=== PATIENT | male | born 1965 | race Asian ===

== ENCOUNTER 2018-07-29 12:12 | Inpatient (IN) | payer MEDICAID ==
[~2018-07-29] VITALS: Ht 177.8 cm; Wt 171.3 kg
[2018-07-29 13:43] LABS: BASOPHILS # (AUTO) 0.02 x10^3/uL (0-0.1); BASOPHILS % (AUTO) 0 % (0-1); EOSINOPHILS # (AUTO) 0.29 x10^3/uL (0-0.4); EOSINOPHILS % (AUTO) 3 % (1-7); LYMPHOCYTES # (AUTO) 1.54 x10^3/uL (1-3.4); LYMPHOCYTES % (AUTO) 18 % (22-44); MD NO; MEAN CORPUSCULAR HEMOGLOBIN 30.2 pg (27.5-34.5); MEAN CORPUSCULAR HGB CONC 33.4 g/dL (33.2-36.2); MEAN CORPUSCULAR VOLUME 90.5 fL (81-97); MEAN PLATELET VOLUME 7.3 fL (7.4-10.4); MONOCYTES # (AUTO) 0.97 x10^3/uL (0.2-0.8); MONOCYTES % (AUTO) 11 % (2-9); NEUTROPHILS # (AUTO) 5.75 x10^3/uL (1.8-6.8); NEUTROPHILS % (AUTO) 67 % (42-75); PLATELET COUNT 357 x10^3/uL (130-400); RED BLOOD COUNT 5.37 x10^6/uL (4.38-5.82); RED CELL DISTRIBUTION WIDTH 13.6 % (9.4-14.8)
[2018-07-29 13:56] LABS: ALBUMIN 3.7 g/dL (3.4-5.0); ANION GAP 5 mmol/L (5-15); CALCIUM 8.8 mg/dL (8.5-10.1); CHLORIDE 108 mmol/L (98-107); CREATININE 0.85 mg/dL (0.7-1.3)
[2018-07-29] MEDS ORDERED: SODIUM CHLORIDE FLUSH 10ML SYR IVF ONE (14:30)
[2018-07-29] MEDS ORDERED: CEFTRIAXONE PMX 1GM/50ML 50 ML IVPB ONE (14:30)
--- NOTE | 2018-07-29 14:43 | NUR ---
PHARMACY SALESPERSON: PT TO ROOM FROM LOBBY, UPRIGHT STEADY GAIT
--- NOTE | 2018-07-29 15:00 | NUR ---
ASSUMED CARE OF PT AT THIS TIME. THIS IS A 52 YO MALE WHO PRESENTS TO THE ER C/O COUGH/GENERAL MALAISE SINCE SATURDAY, WORSE TODAY. PT IS CURRENTLY BREATHING SHALLOWLY AND RAPIDLY, RR 24. PT ABLE TO SPEAK IN SHORT 3-5 WORD SENTENCES BEFORE BECOMING MORE SHORT OF BREATH. PT IS NOT USING ACCESORY MUSLCES TO BREATHE AT THIS TIME. PT AO X 4. SKIN WARM AND DRY AND APPOPRIATE FOR ETHNICITY. NSR 70'S ON ANALYTIC MANAGER. PT ON CONT BP, CARDIAC AND O2 MONITORS. CALL LIGHT WITHIN REACH. WILL CONT TO MONITOR PT.
[2018-07-29] MEDS ORDERED: CEFTRIAXONE PMX 2GM/50ML 50 ML ONE (15:10)
[2018-07-29] MEDS ORDERED: CEFTRIAXONE PMX 2GM/50ML 50 ML IV ONE (15:30)
--- NOTE | 2018-07-29 16:25 | NUR ---
BREAK RN: PT AMBULATED WITH STEADY GAIT. DROPPED TO 88 RA AFTER AMBULATING. PT PLACED BACK ON 2L OF 02 VIA N/C. HEART RATE MOVED UP TO MID 90'S AFTER AMBULATION. ERMD AWARE.
[2018-07-29] MEDS: GUAIFENESIN 200 MG TABLET PO SCH ×2 (17:00→21:00)
[2018-07-29] MEDS ORDERED: hydrALAzine 20 MG/ML, 1ML IVPush PRN (17:00)
[2018-07-29] MEDS ORDERED: ONDANSETRON 2MG/ML, 2ML IVPush PRN (17:00)
[2018-07-29] MEDS ORDERED: morphine SULFATE 10 MG/ML, 1ML IVPush PRN (17:00)
[2018-07-29] MEDS ORDERED: ACETAMINOPHEN 325 MG TABLET PO PRN (17:00)
[2018-07-29] MEDS ORDERED: PROMETHAZINE 25 MG/ML, 1ML IM PRN (17:00)
[2018-07-29] MEDS ORDERED: LABETALOL 5MG/ML, 20ML IVPush PRN (17:00)
--- NOTE | 2018-07-29 17:30 | NUR ---
PT CURRENTLY RESTING ON GURInHiro. NAD NOTED. RESPIRATIONS APPEAR LESS LABORED, MORE EVEN AT THIS TIME. PT ABLE TO SPEAK IN 5-7 WORD SENTENCES W/O DIFFICULTY. PT DOES BECOME SOB WITH ACTIVITY BUT AT REST DOES NOT APPEAR TO BE IN DISTRESS. PT AO X 4. SKIN PWD. RESP EVEN AND EQAUL. PT ON CONT BP, CARDIAC AND O2 MONITORS. CALL LIGHT WITHIN REACH. WILL CONT TO MONITOR PT.
[2018-07-29] MEDS ORDERED: ENOXAPARIN 40 MG/0.4 ML ONE (17:32)
[2018-07-29] MEDS: ENOXAPARIN 40 MG/0.4 ML SQ SCH (17:45)
[2018-07-29] MEDS: SODIUM CHLORIDE 0.9% 1,000 ML IV SCH (17:46)
[2018-07-29 17:55] LABS: TROPONIN I < 0.015 ng/mL (0.000-0.045)
[2018-07-29] MEDS: AZITHROMYCIN 500 MG in SODIUM CHLORIDE 0.9% 250 ML IV SCH (17:56)
--- NOTE | 2018-07-29 18:00 | NUR ---
REPORT TO DEANGELO AGUILERA ON MED/TELE.
[2018-07-29 18:21] VITALS: BP 141/88
[2018-07-29 19:42] LABS: TROPONIN I < 0.015 ng/mL (0.000-0.045)
[2018-07-30 00:08] VITALS: BP 129/86
[2018-07-30] MEDS: GUAIFENESIN 200 MG TABLET PO SCH ×4 (05:31→20:10)
[2018-07-30 06:28] LABS: BASOPHILS # (AUTO) 0.02 x10^3/uL (0-0.1); BASOPHILS % (AUTO) 0 % (0-1); EOSINOPHILS # (AUTO) 0.34 x10^3/uL (0-0.4); EOSINOPHILS % (AUTO) 4 % (1-7); LYMPHOCYTES # (AUTO) 1.63 x10^3/uL (1-3.4); LYMPHOCYTES % (AUTO) 20 % (22-44); MD NO; MEAN CORPUSCULAR HEMOGLOBIN 30.4 pg (27.5-34.5); MEAN CORPUSCULAR HGB CONC 33.8 g/dL (33.2-36.2); MEAN CORPUSCULAR VOLUME 89.9 fL (81-97); MEAN PLATELET VOLUME 7.4 fL (7.4-10.4); MONOCYTES # (AUTO) 0.76 x10^3/uL (0.2-0.8); MONOCYTES % (AUTO) 9 % (2-9); NEUTROPHILS # (AUTO) 5.35 x10^3/uL (1.8-6.8); NEUTROPHILS % (AUTO) 66 % (42-75); PLATELET COUNT 351 x10^3/uL (130-400); RED BLOOD COUNT 5.09 x10^6/uL (4.38-5.82); RED CELL DISTRIBUTION WIDTH 13.4 % (9.4-14.8)
[2018-07-30 06:38] LABS: CALCIUM 8.7 mg/dL (8.5-10.1); CHLORIDE 109 mmol/L (98-107)
[2018-07-30 06:45] LABS: ALANINE AMINOTRANSFERASE 35 U/L (12-78); ALBUMIN 3.5 g/dL (3.4-5.0); ALKALINE PHOSPHATASE 65 U/L (45-117); ANION GAP 7 mmol/L (5-15); BILIRUBIN,TOTAL 0.7 mg/dL (0.2-1.0); CREATININE 0.85 mg/dL (0.7-1.3); TOTAL PROTEIN 7.5 g/dL (6.4-8.2)
[2018-07-30 09:50] VITALS: BP 124/86
[2018-07-30] MEDS: SODIUM CHLORIDE 0.9% 1,000 ML IV SCH (12:53)
[2018-07-30 13:30] VITALS: BP 132/88
[2018-07-30] MEDS ORDERED: CEFTRIAXONE PMX 1GM/50ML 50 ML IV SCH (15:00)
[2018-07-30] MEDS: AZITHROMYCIN 500 MG in SODIUM CHLORIDE 0.9% 250 ML IV SCH (17:17)
[2018-07-30] MEDS: ENOXAPARIN 40 MG/0.4 ML SQ SCH (17:18)
[2018-07-30 17:47] LABS: CLOSTRIDIUM DIFFICILE ANTIGEN NEGATIVE; CLOSTRIDIUM DIFFICILE TOXIN NEGATIVE (Negative)
[2018-07-30 19:41] VITALS: BP 148/88
[2018-07-31 00:07] VITALS: BP 100/62
[2018-07-31 03:50] VITALS: BP 144/93
[2018-07-31] MEDS: GUAIFENESIN 200 MG TABLET PO SCH ×2 (06:00→10:19)
[2018-07-31 08:11] VITALS: BP 142/73
[2018-07-31] MEDS: SODIUM CHLORIDE 0.9% 1,000 ML IV SCH (08:53)
[2018-07-31] MEDS ORDERED: AMOXICILLIN/CLAV 875-125MG TABLET PO SCH (10:00)
[2018-07-31] MEDS ORDERED: DOXYCYCLINE 100MG TABLET PO SCH (10:00)
[2018-07-31] MEDS ORDERED: GUAI200T3 PO (10:05)
[2018-07-31] MEDS ORDERED: AMOX1TAB12 PO (10:05)
[2018-07-31] MEDS ORDERED: DOXY100T PO (10:05)
[2018-07-31] MEDS ORDERED: ALBU18HF INH (10:05)
[2018-07-31] MEDS ORDERED: ALBU90AE INH (16:40)
== END 2018-07-31 12:30 | disposition home or self-care (01) | DRG 193 ==
LOC: ED 16:00 → EDIP 16:24 → 4WST 18:07 → DCLOUNGE 07-31 12:21
PROVIDERS: ADMIT Hospitalist; ATTEND Hospitalist
DX: J15.9 Unspecified bacterial pneumonia (principal); J96.01 Acute respiratory failure with hypoxia; Z68.43 Body mass index [BMI] 50.0-59.9, adult; E66.9 Obesity, unspecified; F17.200 Nicotine dependence, unspecified, uncomplicated; G47.33 Obstructive sleep apnea (adult) (pediatric); J40 Bronchitis, not specified as acute or chronic
CPT/HCPCS: 36415; 71046; 80048; 80053; 82040; 83605; 83880; 84145; 84484; 85025; 85379; 87040; 87324; 93005; 96365; G0378; J0456; J0696; J1650; J7030; J7050